=== PATIENT | female | born 1980 | race Caucasian/White ===

== ENCOUNTER 2017-05-17 05:50 | Inpatient (IN) | payer MEDICAID ==
[2017-05-17] VITALS (11 sets, daily range): BP systolic 96–125; BP diastolic 60–75
[~2017-05-17] VITALS: Ht 180.3 cm; Wt 68.9 kg
--- NOTE | 2017-05-17 06:20 | NUR ---
Pt came to ED after exacerbation of chest pain while at rest. Pain origionates at epigastric area, then radiates to upper left chest and then to back. Pain described as tight, squeeze, and pressure. A&Ox4, Pt states SOB but O2sat 99% RA with regular respirations. EKG shows NSR. Pt states Hx of anxiety. At home she self treated with Ativan x1 with no relief, then with tylenol with no relief, then with Mylanta with no relief. Pt came to ED after being unable to deal with chest pain. VSS. ER MD aware. Continue to monitor.
--- NOTE | 2017-05-17 07:21 | NUR ---
Report given to Annamarie MATHUR
[2017-05-17] MEDS ORDERED: ASPIRIN 325 MG TAB PO ONE (07:40)
[2017-05-17 08:37] LABS: BASOPHILS # (AUTO) 0.1 K/uL (0.00-0.22); BASOPHILS % (AUTO) 0.6 % (0.0-2.0); EOSINOPHILS # (AUTO) 0.2 K/uL (0-0.4); EOSINOPHILS % (AUTO) 1.9 % (0.0-4.0); HEMOGLOBIN 9.4 g/dL (12.0-16.0); LYMPHOCYTES # (AUTO) 2.5 K/uL (2.5-16.5); LYMPHOCYTES % (AUTO) 20.2 % (20.5-51.1); MEAN CORPUSCULAR HEMOGLOBIN 22 pg (27-31); MEAN CORPUSCULAR HGB CONC 31 g/dL (33-37); MEAN CORPUSCULAR VOLUME 70 fL (80-94); MONOCYTES # (AUTO) 0.5 K/uL (0.8-1.0); MONOCYTES % (AUTO) 4.3 % (1.7-9.3); NEUTROPHILS # (AUTO) 9.1 K/uL (1.8-7.7); PLATELET COUNT (AUTO) 443 K/uL (140-450); RED BLOOD CELL COUNT(AUTO) 4.26 MIL/uL (4.20-5.40); RED CELL DISTRIBUTION WIDTH 15.9 % (11.6-13.7); WHITE BLOOD COUNT (AUTO) 12.4 K/uL (4.8-10.8)
[2017-05-17 08:50] LABS: CARBON DIOXIDE 23.9 mmol/L (21-32); CREATININE 0.7 mg/dL (0.6-1.3); POTASSIUM 3.9 mmol/L (3.5-5.1)
[2017-05-17] MEDS ORDERED: MORPHINE SULFATE 4 MG/ML SYR IM ONE (08:55)
[2017-05-17 09:05] LABS: ALBUMIN 3.6 g/dL (3.4-5.0); FREE T4 (FREE THYROXINE) 0.84 ng/dL (0.76-1.46); THYROID STIMULATING HORMONE 3.07 uIU/mL (0.34-3.74); TOTAL BILIRUBIN 0.2 mg/dL (0.0-1.0)
--- NOTE | 2017-05-17 09:37 | NUR ---
PT STATED PAIN RELIVED. NO PAIN AT THIS TIME. US TECH AT BEDSIDE.
--- NOTE | 2017-05-17 09:52 | NUR ---
pt denies any cp at this time. pt with no complaints. will continue to monitor.
[2017-05-17] MEDS ORDERED: ONDANSETRON 4 MG/2 ML VIAL IVP ONE (10:00)
[2017-05-17] MEDS ORDERED: NACL 0.9% 1,000 ML IV ONE (10:00)
[2017-05-17 10:34] LABS: APPEARANCE,URINE CLEAR (CLEAR); BILIRUBIN,URINE NEGATIVE (NEGATIVE); BLOOD, URINE NEGATIVE (NEGATIVE); COLOR,URINE YELLOW (YELLOW); LEUKOCYTE ESTERASE ,URINE NEGATIVE (NEGATIVE); NITRITE, URINE NEGATIVE (NEGATIVE); UGLUCOSE NEGATIVE (NEGATIVE)
[2017-05-17] MEDS ORDERED: PIPERACILLIN/TAZOBACTAM 3.375 GM in DEXTROSE 5% 50 ML IV ONE (10:40)
[2017-05-17 10:49] LABS: BARBITURATE, URINE POS. ng/ml (NEG <=200); BENZODIAZEPINE, URINE NEG. ng/mL (NEG <=200); CANNABINOID, URINE POS. ng/mL (NEG <=50); COCAINE, URINE NEG. ng/mL (NEG <=300); OPIATE, URINE NEG. ng/mL (NEG <=2000); PHENCYCLIDINE SCREEN,URINE NEG. ng/mL (NEG <=25)
[2017-05-17] MEDS ORDERED: PIPER/TAZO 3.375GM/D5W PREMIX 50 ML IV SCH (10:53)
[2017-05-17 11:14] LABS: RBC,URINE NONE SEEN /HPF (0-5); WBC,URINE 0-5 (RARE) /HPF (0-5)
[2017-05-17] MEDS ORDERED: NACL 0.9% 1,000 ML IV SCH (11:38)
[2017-05-17] MEDS ORDERED: ONDANSETRON 4 MG/2 ML VIAL IM/IVP PRN (11:40)
[2017-05-17] MEDS ORDERED: ACETAMINOPHEN 325 MG TAB PO PRN (11:40)
[2017-05-17] MEDS ORDERED: DOCUSATE SODIUM 100 MG GELCAP PO PRN (11:40)
[2017-05-17] MEDS ORDERED: PIPERACILLIN/TAZOBACTAM 3.375 GM in DEXTROSE 5% 50 ML IV SCH (12:00)
--- NOTE | 2017-05-17 12:45 | NUR ---
RECEIVED PATIENT REPORT AT BEDSIDE FROM NIGHT NURSE. PATIENT IS AAOX4 AND SHOWS NO S/S OF ACUTE DISTRESS ON ROOM AIR, DENIES PAIN. IV NOTED ON THE LEFT AC WITH IVF'S INFUSING WELL, PATENT AND INTACT. SKIN INTACT. PATIENT WAS EXPLAINED POC FOR TODAY, HOSPITAL ENVIRONMENT AND USE OF CALL LIGHT FOR ASSISTANCE, PATIENT VERBALIZED UNDERSTANDING. ALL NEEDS MET AT THIS TIME, BED IN LOW POSITION WITH CALL LIGHT WITHIN REACH.
--- NOTE | 2017-05-17 14:10 | NUR ---
PATIENT LEFT TO OR FOR PROCEDURE IN STABLE CONDITION WITH TAMMIE MATHUR AND NORA MATHUR.
[2017-05-17] MEDS ORDERED: HYDROmorphone PFS 2 MG/ML SYR ONE (14:21)
[2017-05-17] MEDS ORDERED: fentaNYL 0.05 MG/ML VIAL ONE (14:21)
[2017-05-17 14:40] LABS: CHOL/HDL RATIO 4.4 (1-4.5); MAGNESIUM 2.2 mg/dL (1.8-2.4); PHOSPHORUS 3.3 mg/dL (2.5-4.9)
[2017-05-17] MEDS ORDERED: ONDANSETRON 4 MG/2 ML VIAL ONE (14:40)
[2017-05-17] MEDS ORDERED: ROCURONIUM 50 MG/5 ML VIAL IV ONE (14:40)
[2017-05-17] MEDS ORDERED: DESFLURANE 240 ML BTL INH ONE (14:40)
[2017-05-17] MEDS ORDERED: PROPOFOL 200 MG/20 ML VIAL IV ONE (14:40)
[2017-05-17] MEDS ORDERED: DEXAMETHASONE 10 MG/ML VIAL ONE (14:40)
[2017-05-17] MEDS ORDERED: LORA-476 PO (14:43)
[2017-05-17] MEDS: BUPIVACAINE-MPF 0.25% 30 ML VIAL INJ ONE ×2 (15:09→16:05)
[2017-05-17] MEDS ORDERED: ONDANSETRON 4 MG/2 ML VIAL IVP PRN (15:35)
[2017-05-17] MEDS ORDERED: THROMBIN KIT 20 MU VIAL TP ONE (15:35)
[2017-05-17] MEDS ORDERED: HYDROmorphone 1 MG/ML AMP IVP PRN (15:35)
[2017-05-17] MEDS: DEXT 5% / NACL 0.45% 1,000 ML IV SCH (16:15)
--- NOTE | 2017-05-17 16:18 | NUR ---
pt not in room
--- NOTE | 2017-05-17 17:00 | NUR ---
PATIENT BACK ON UNIT, NOTED 4 ABD INCISION WITH DERMABOND MYRNA, PATIENT IS STABLE V/S CHARTED, PATIENT C/O PAIN 08/11 HOWEVER ALREADY RECEIVED PAIN MEDICATIONS WILL GIVE ONCE DUE, AT BEDSIDE, ALL NEEDS MET AT THIS TIME
--- NOTE | 2017-05-17 17:10 | NUR ---
PATIENT HAS ICE CHIPS AND TOLERATING WELL.
[2017-05-17] MEDS: PIPER/TAZO 3.375GM/D5W PREMIX 50 ML IV SCH (17:27)
[2017-05-17] MEDS: MORPHINE SULFATE 2 MG/ML SYR IVP PRN ×2 (17:32→21:47)
--- NOTE | 2017-05-17 17:43 | NUR ---
PATIENT GIVEN MORPHINE 2 MG IVP FOR 7/10 ABD PAIN, PATIENT O2 SAT RANGES FROM 88%-92% APPLIED O2 VIA NC 2LPM, O2 SAT 98%. PATIENT SHOWS NO S/S OF ACUTE DISTRESS ON ROOM AIR. ALL NEEDS MET AT THIS TIME.
[2017-05-17 17:44] LABS: PROTHROMBIN TIME 9.7 secs (10.8-13.4)
[2017-05-17] MEDS ORDERED: SENNA 8.6 MG TAB PO PRN (17:50)
[2017-05-17] MEDS ORDERED: ONDANSETRON 4 MG/2 ML VIAL IV PRN (17:50)
[2017-05-17] MEDS ORDERED: ZOLPIDEM 5 MG TAB PO PRN (17:50)
[2017-05-17] MEDS ORDERED: BISACODYL 10 MG SUPP PR PRN (17:50)
--- NOTE | 2017-05-17 19:24 | NUR ---
REPORT GIVEN TO NIGHT NURSE AT BEDSIDE, PATIENT ENDORSED IN STABLE CONDITION.
--- NOTE | 2017-05-17 21:50 | NUR ---
PT COMPLAINED OF 8/10 ABDOMINAL PAIN. MEDICATED WITH MORPHINE PER ORDER. PT ALSO ASKED FOR FOOD. EXPLAINED THAT SHE IS ON A CLEAR LIQUID DIET AND SHE CANNOT EAT SOLID FOOD AT THIS TIME, PT HAD CHICKEN BROTH AND PT TOLERATED WELL, NO PROBLEMS SWALLOWING.
[2017-05-18] VITALS: BP 102/63
--- NOTE | 2017-05-18 | NUR ---
PT VOIDED. VITAL SIGNS WITHIN NORMAL LIMITS. PT IN STABLE CONDITION, NO SIGNS OF DISTRESS NOTED. BED IN LOWEST POSITION, CALL LIGHT WITHIN REACH. WILL CONTINUE TO MONITOR.
[2017-05-18] MEDS: PIPER/TAZO 3.375GM/D5W PREMIX 50 ML IV SCH ×4 (00:23→17:07)
[2017-05-18] MEDS: DEXT 5% / NACL 0.45% 1,000 ML IV SCH (02:15)
--- NOTE | 2017-05-18 02:45 | NUR ---
PT IN STABLE CONDITION, NO SIGNS OF DISTRESS NOTED. BED IN LOWEST POSITION, CALL LIGHT WITHIN REACH. WILL CONTINUE TO MONITOR.
[2017-05-18 04:00] VITALS: BP 105/59
[2017-05-18] MEDS: MORPHINE SULFATE 2 MG/ML SYR IVP PRN ×4 (04:30→16:45)
[2017-05-18] MEDS ORDERED: MORPHINE SULFATE 2 MG/ML SYR ONE (04:47)
--- NOTE | 2017-05-18 05:14 | NUR ---
PT COMPLAINED OF 8/10 ABDOMINAL PAIN. MEDICATED WITH MORPHINE PER ORDER, PT TOLERATED WELL. WILL REASSESS FOR EFFECTIVENESS OF MEDICATION.
--- NOTE | 2017-05-18 07:27 | NUR ---
ENDORSED PT IN STABLE CONDITION TO DAY SHIFT NURSE FOR CONTINUITY OF CARE.
--- NOTE | 2017-05-18 07:31 | NUR ---
ENDORSEMENT RECEIVED FROM ADMINISTRATIVE STAFF SUPERVISOR NURSE. PATIENT IS AWAKE, ALERT, STANDING BY THE BED. RESPIRATION EVEN, UNLABOR ON ROOM AIR. SKIN DRY AND WARM. IV PATENT AND INTACT. DENIED PAIN AT THIS TIME. PLAN OF CARE WAS DISCUSSED WITH THE PATIENT. BED AT LOW POSITION, SIDE RAILS UP. CALL LIGHT WITHIN REACH.
[2017-05-18 07:45] LABS: HEMATOCRIT 26.5 % (36-48); HEMOGLOBIN 8.1 g/dL (12.0-16.0); MEAN CORPUSCULAR HEMOGLOBIN 22 pg (27-31); MEAN CORPUSCULAR HGB CONC 31 g/dL (33-37); MEAN CORPUSCULAR VOLUME 70 fL (80-94); PLATELET COUNT (AUTO) 396 K/uL (140-450); RED BLOOD CELL COUNT(AUTO) 3.76 MIL/uL (4.20-5.40); RED CELL DISTRIBUTION WIDTH 17.2 % (11.6-13.7)
[2017-05-18 07:53] LABS: ALBUMIN 3.2 g/dL (3.4-5.0); ANION GAP 14.7 (8-16); CARBON DIOXIDE 24.1 mmol/L (21-32); CREATININE 0.7 mg/dL (0.6-1.3); POTASSIUM 3.8 mmol/L (3.5-5.1); TOTAL BILIRUBIN 0.4 mg/dL (0.0-1.0)
[2017-05-18 08:00] VITALS: BP 93/57
[2017-05-18] MEDS: HYDROcodone/APAP 7.5/325 MG 1 TAB PO PRN ×3 (08:34→21:32)
[2017-05-18] MEDS: LACTOBACILLUS RHAMNOSUS GG 1 EACH CAP PO SCH (08:34)
--- NOTE | 2017-05-18 08:57 | NUR ---
PATIENT HAS BEEN SCREENED AND CATEGORIZED LOW NUTRITION RISK. PATIENT WILL BE SEEN WITHIN 7 DAYS OF ADMISSION. 05/23/[address]
[2017-05-18 09:07] LABS: LYMPHOCYTES % (MANUAL) 7 % (20-46); MONOCYTES % (MANUAL) 4 % (5-12)
--- NOTE | 2017-05-18 09:50 | NUR ---
PATIENT COMPLAINED OF WORSENING ABDOMINAL PAIN AFTER WALKING WITH PT, 10/11. MEDICATION WAS GIVEN PER ORDER
--- NOTE | 2017-05-18 10:46 | NUR ---
PATIENT IS SLEEPING COMFORTABLY. RESPIRATION EVEN, UNLABOR ON ROOM AIR. NO DISTRESS NOTED AT THIS TIME. CALL LIGHT WITHIN REACH
[2017-05-18 12:00] VITALS: BP 95/52
[2017-05-18] MEDS: NACL 0.9% 1,000 ML IV SCH (13:47)
--- NOTE | 2017-05-18 15:56 | NUR ---
PATIENT IS AWAKE, ALERT. RESPIRATION EVEN, UNLABOR ON ROOM AIR. PATIENT COMPLAINED OF ABDOMINAL PAIN 4/10, WILL MEDICATE PER ORDER
[2017-05-18 16:00] VITALS: BP 97/54
--- NOTE | 2017-05-18 16:00 | NUR ---
PATIENT AMBULATED AROUND THE HALLWAY WITH HER , STEADY GAIT
--- NOTE | 2017-05-18 16:56 | NUR ---
PATIENT COMPLAINED OF ABDOMINAL PAIN 7/10 AFTER AMBULATING AROUND THE HALLWAY. SURGICAL INCISIONS INTACT, BOWEL SOUND ACTIVE ALL QUADRANTS. MEDICATION WAS GIVEN PER ORDER
--- NOTE | 2017-05-18 17:30 | NUR ---
DR. FREED WAS MADE AWARE OF CA LEVEL 7.5, ADVISED TO CONTINUE TO MONITOR.
--- NOTE | 2017-05-18 18:11 | NUR ---
PATIENT IS AWAKE, ALERT, EATING DINNER. RESPIRATION EVEN, UNLABOR ON ROOM AIR. DENIED N/V, PAIN AT THIS TIME. IV PATENT AND INTACT. FAMILY AT BEDSIDE. CALL LIGHT WITHIN REACH
--- NOTE | 2017-05-18 19:15 | NUR ---
RECD. RESTING IN BED, AWAKE, A/OX4. RESPIRATION EVEN AND UNLABORED. IV OF D5 1/2 NS AT 100 ML/HR INFUSING, LEFT AC G20. INCISION IN THE ABDOMEN (4) WITH GLUED, ALL DRY AND INTACT. ON BILATERAL LEG SEQUENTIALS. USES THE INCENTIVE SPIROMETER OCCASIONALLY. ABLE TO AMBULATE INDEPENDENTLY. NO BM YET BUT REFUSED STOOL SOFTENER WHEN OFFERED. PAIN IN THE ABDOMEN 04/13, WILL CALL NURSE WHEN PAIN INCREASES. WILL MEDICATE ORDERED. PLAN OF CARE FOR THE SHIFT DISCUSSED. VERBALIZED UNDERSTANDING.
--- NOTE | 2017-05-18 19:30 | NUR ---
Patient's Plan of Care was discussed and reviewed with AUTOMATIC STEEL TIE ADJUSTER: JEANE
[2017-05-19] MEDS: PIPER/TAZO 3.375GM/D5W PREMIX 50 ML IV SCH ×4 (00:06→18:19)
[2017-05-19 00:22] VITALS: BP 101/64
[2017-05-19] MEDS: MORPHINE SULFATE 2 MG/ML SYR IVP PRN ×2 (00:39→05:04)
[2017-05-19] MEDS: NACL 0.9% 1,000 ML IV SCH ×2 (03:03→20:35)
[2017-05-19 04:59] VITALS: BP 104/62
[2017-05-19 06:26] LABS: BASOPHILS # (AUTO) 0.1 K/uL (0.00-0.22); BASOPHILS % (AUTO) 0.4 % (0.0-2.0); EOSINOPHILS # (AUTO) 0.1 K/uL (0-0.4); EOSINOPHILS % (AUTO) 1.1 % (0.0-4.0); HEMATOCRIT 25.5 % (36-48); HEMOGLOBIN 7.8 g/dL (12.0-16.0); LYMPHOCYTES # (AUTO) 2.6 K/uL (2.5-16.5); LYMPHOCYTES % (AUTO) 19.2 % (20.5-51.1); MEAN CORPUSCULAR HEMOGLOBIN 22 pg (27-31); MEAN CORPUSCULAR HGB CONC 31 g/dL (33-37); MEAN CORPUSCULAR VOLUME 71 fL (80-94); MONOCYTES # (AUTO) 0.9 K/uL (0.8-1.0); MONOCYTES % (AUTO) 6.4 % (1.7-9.3); NEUTROPHILS # (AUTO) 9.9 K/uL (1.8-7.7); NEUTROPHILS % (AUTO) 72.9 % (42.2-75.2); PLATELET COUNT (AUTO) 400 K/uL (140-450); RED BLOOD CELL COUNT(AUTO) 3.58 MIL/uL (4.20-5.40); RED CELL DISTRIBUTION WIDTH 15.8 % (11.6-13.7); WHITE BLOOD COUNT (AUTO) 13.6 K/uL (4.8-10.8)
[2017-05-19 06:38] LABS: ANION GAP 11.8 (8-16); CARBON DIOXIDE 25.4 mmol/L (21-32); CREATININE 0.6 mg/dL (0.6-1.3); POTASSIUM 3.2 mmol/L (3.5-5.1)
--- NOTE | 2017-05-19 07:15 | NUR ---
RECEIVED REPORT FROM FLAT SURFACER NURSE FOR CONTINUITY OF CARE AT BEDSIDE. PATIENT ALERT AND ABLE TO MAKE NEEDS KNOWN. NO ACUTE DISTRESS NOTED. NO C/O PAIN OR DISCOMFORT. PT WITH IV SITE TO LEFT AC 20G NS RUNNING AT 70 ML/HR. CALL LIGHT WITHIN REACH. WILL CONT TO MONITOR PT.
[2017-05-19] MEDS: LACTOBACILLUS RHAMNOSUS GG 1 EACH CAP PO SCH (09:02)
[2017-05-19] MEDS: HYDROcodone/APAP 7.5/325 MG 1 TAB PO PRN ×3 (09:06→21:01)
--- NOTE | 2017-05-19 09:06 | NUR ---
ADMINISTERED SCHEDULED MORNING MEDICATION. TOLERATED WELL. NORCO ADMINISTERED FOR PAIN. PATIENT ALERT AND ABLE TO MAKE NEEDS KNOWN. CALL LIGHT WITHIN REACH. WILL CONT TO MONITOR PT.
[2017-05-19] MEDS ORDERED: POTASSIUM CHLORIDE 10 MEQ TABER PO SCH (09:19)
[2017-05-19] MEDS: DOCUSATE SODIUM 250 MG GELCAP PO PRN (09:48)
--- NOTE | 2017-05-19 09:49 | NUR ---
ADMINISTERED POTASSIUM 40 MEQ AND COLACE ORDERED PER MD. PT TOLERATED WELL. WILL CONT TO MONITOR PT.
--- NOTE | 2017-05-19 10:45 | NUR ---
PT SLEEPING SOUNDLY. NO SIGNS OF DISTRESS. WILL CONTINUE TO MONITOR PT.
--- NOTE | 2017-05-19 12:34 | NUR ---
PT HAVING LUNCH. REQUESTED A PRUNE JUICE EARLIER. STILL NO GAS OR BM. PER PT, WILL WALK AFTER LUNCH. WILL CONTINUE TO MONITOR PT.
--- NOTE | 2017-05-19 14:30 | NUR ---
PATIENT ALERT AND ABLE TO VERBALIZE NEEDS. NO ACUTE DISTRESS NOTED. PT WITH VISITORS AT BEDSIDE. NO ACUTE DISTRESS NOTED. PT STILL HAS NOT PASSED GAS BUT VERBALIZED SHE IS BURPING. WILL CONT TO MONITOR PT.
--- NOTE | 2017-05-19 15:00 | NUR ---
PT CALLED TO NOTIFY THAT WHEN SHE WENT TO THE RESTROOM TO VOID SHE HAD BLOOD CLOTS IN THE TOILET. PT VERBALIZED THAT SHE FINISHED HER MENSTRUAL CYCLE ON 05/17/17. NOTIFIED DR ALBARRAN AND VERBALIZED THAT SHE WOULD INPUT ORDER FOR ULTRA SOUND. WILL CONT TO MONITOR PT.
[2017-05-19 16:00] VITALS: BP 109/75
--- NOTE | 2017-05-19 17:00 | NUR ---
PT VERBALIZED THAT SHE VOIDED BUT DID NOT HAVE ANY BLOOD CLOTS PRESENT. SHE STATED THAT WHEN SHE WIPED AFTER VOIDING SHE NOTED FAINT SMEAR OF BLOOD WITH URINE. WILL CONT TO MONITOR PT. AWAITING ULTRASOUND.
--- NOTE | 2017-05-19 18:03 | NUR ---
DR. WINTER CAME AND SAW PT. NOTIFIED MD OF INFILTRATED IV. NO IV ACCESS AT THIS TIME. PER MD, START IV ACCESS, KEEP SL, AND D/C IVF. EXPLAINED TO PT, PT WILL BE STAYING OVER NIGHT, MAKE SURE U/S RESULT COME IN, CHECK LABS TOMORROW, CHECK FOR MORE BLEEDING. ONCE SHE PASSES GAS OR HAS BM, SHE CAN GO HOME TOMORROW. PT VERBALIZED UNDERSTANDING. PT IS AMBULATING IN THE HALLS WITH SPOUSE. PT IN STABLE CONDITION.
--- NOTE | 2017-05-19 19:20 | NUR ---
ENDORSED REPORT TO REHAB/PRE VOCATIONAL COUNSELOR NURSE FOR CONTINUITY OF CARE AT BEDSIDE.
--- NOTE | 2017-05-19 19:30 | NUR ---
RECEIVED PT IN STABLE CONDITION FROM AM NURSE. AWAKE, ALERT AND ORIENTED X4. MED SURG PT. WITH FAMILY AT BEDSIDE. HASN'T PASS GAS YET BUT JUST AMBULATED TO THE HALLWAY. ABDOMEN WITH X4 INCISIONS WITH TRANSPARENT CLEAR DRESSING. NO SWELLING, NO BLEEDING NOTED ON THE INCISIONS. IV ACCESS ON THE LT HAND #20. CLEAR AND PATENT. ENCOURAGED TO AMBULATE MORE. BED ON LOW POSITION, CALL LIGHT PLACED WITHIN EASY REACH. WILL CONTINUE TO MONITOR.
[2017-05-19] MEDS ORDERED: BISACODYL 5 MG TABEC PO SCH (21:30)
--- NOTE | 2017-05-19 21:30 | NUR ---
PT C/O GAS PAIN, NO BM YET EVEN AFTER PRUNE JUICE AND AMBULATION. DR. PARKER HERE WITH ORDERS.
[2017-05-20] MEDS: SIMETHICONE 80 MG TAB.CHEW PO PRN ×2 (00:13→09:09)
[2017-05-20] MEDS: PIPER/TAZO 3.375GM/D5W PREMIX 50 ML IV SCH ×2 (00:17→05:45)
--- NOTE | 2017-05-20 01:15 | NUR ---
PT SAID SHE ALREADY PASSED SOME GAS AFTER THE MYLICON WAS GIVEN.
--- NOTE | 2017-05-20 02:30 | NUR ---
MADE ROUNDS. PT IS ASLEEP. NO S/S OF ANY DISCOMFORT NOTED.
--- NOTE | 2017-05-20 04:30 | NUR ---
PT OSWALDO WOKE UP . FEEL MUCH BETTER. NO MORE C/O ANY DISCOMFORT. ALREADY HAD PASSED SOME GAS.
--- NOTE | 2017-05-20 07:25 | NUR ---
ENDORSED PT IN STABLE CONDITION TO AM NURSE.
[2017-05-20 07:26] LABS: BASOPHILS # (AUTO) 0.1 K/uL (0.00-0.22); BASOPHILS % (AUTO) 0.9 % (0.0-2.0); EOSINOPHILS # (AUTO) 0.3 K/uL (0-0.4); EOSINOPHILS % (AUTO) 2.8 % (0.0-4.0); HEMATOCRIT 24.7 % (36-48); HEMOGLOBIN 7.8 g/dL (12.0-16.0); LYMPHOCYTES # (AUTO) 2.4 K/uL (2.5-16.5); LYMPHOCYTES % (AUTO) 21.3 % (20.5-51.1); MEAN CORPUSCULAR HEMOGLOBIN 22 pg (27-31); MEAN CORPUSCULAR HGB CONC 32 g/dL (33-37); MEAN CORPUSCULAR VOLUME 70 fL (80-94); MONOCYTES # (AUTO) 0.8 K/uL (0.8-1.0); MONOCYTES % (AUTO) 7.3 % (1.7-9.3); NEUTROPHILS # (AUTO) 7.6 K/uL (1.8-7.7); NEUTROPHILS % (AUTO) 67.7 % (42.2-75.2); PLATELET COUNT (AUTO) 398 K/uL (140-450); RED BLOOD CELL COUNT(AUTO) 3.52 MIL/uL (4.20-5.40); RED CELL DISTRIBUTION WIDTH 16.1 % (11.6-13.7); WHITE BLOOD COUNT (AUTO) 11.2 K/uL (4.8-10.8)
--- NOTE | 2017-05-20 07:26 | NUR ---
RECEIVED REPORT FROM THE INDUSTRIAL PIPEFITTER JOURNEYMAN NURSE AT BEDSIDE FOR CONTINUITY OF CARE. PT IS AWAKE AND ORIENTED. PER PT, SHE HAS BEEN PASSING GAS. IV ON L HAND 20G, NS AT 50ML. V/S WITHIN NORMAL RANGE. INCISIONS STILL INTACT WITH DERMABOND. EXCITED TO BE GOING HOME. WILL MONITOR LABS. AWAIT DRS ORDERS.
[2017-05-20 08:00] VITALS: BP 109/70
[2017-05-20 08:45] LABS: ALBUMIN 2.7 g/dL (3.4-5.0); ANION GAP 11.1 (8-16); CARBON DIOXIDE 28.9 mmol/L (21-32); CREATININE 0.6 mg/dL (0.6-1.3); TOTAL BILIRUBIN 0.4 mg/dL (0.0-1.0)
[2017-05-20] MEDS: LACTOBACILLUS RHAMNOSUS GG 1 EACH CAP PO SCH (09:08)
[2017-05-20] MEDS: DOCUSATE SODIUM 250 MG GELCAP PO PRN (09:08)
[2017-05-20] MEDS ORDERED: ACET-2863 PO (09:20)
[2017-05-20] MEDS ORDERED: DOCU-463 PO (09:22)
--- NOTE | 2017-05-20 10:00 | NUR ---
D/C INSTRUCTIONS GIVEN TO PT AND SPOUSE. PT VERBALIZED UNDERSTANDING. REMOVED IV, CANNULA INTACT. NO BLEEDING NOTED. REMOVED ARM BANDS. TOOK PICTURE OF ABD. PT ALREADY DRESSED. WILL GATHER HER THINGS AND LET ME KNOW WHEN THEY ARE READY TO GO. WILL GET WHEELCHAIR READY.
--- NOTE | 2017-05-20 10:30 | NUR ---
WHEELCHAIRED PT OUT TO THE LOBBY ACCOMPANIED BY . ALL PERSONAL BELONGINGS WITH PT. PT IN STABLE CONDITION.
== END 2017-05-20 10:30 | disposition home or self-care (01) | DRG 263 ==
LOC: MED 05:50 → MTU 11:43
PROVIDERS: ADMIT Family Medicine; ATTEND Family Medicine
PROC: 0FT44ZZ Resection of Gallbladder, Percutaneous Endoscopic Approach (ICD-10-PCS; principal; 2017-05-19)
DX: K80.12 Calculus of gallbladder with acute and chronic cholecystitis without obstruction (principal); E83.51 Hypocalcemia; E87.6 Hypokalemia; J45.909 Unspecified asthma, uncomplicated; D50.9 Iron deficiency anemia, unspecified; F41.9 Anxiety disorder, unspecified; Z88.6 Allergy status to analgesic agent; Z83.3 Family history of diabetes mellitus; Z82.49 Family history of ischemic heart disease and other diseases of the circulatory system
CPT/HCPCS: 36415; 71045; 76705; 76770; 80048; 80053; 80305; 81001; 82150; 83036; 83605; 83690; 83735; 83880; 84100; 84439; 84443; 85025; 85379; 85610; 85730; 87040; 87081; 87086; 88304; 93005; 96365; 96372; 96375; 99285; C1887; J1100; J1170; J2270; J2405; J2543; J2704; J3010; J3490; J7030; Q0092